=== PATIENT | female | born 1960 | race Two or more races ===

== ENCOUNTER 2023-05-22 13:00 | Outpatient (CLI) | payer OTHER | END 2023-05-22 13:02 | disposition home or self-care (01) | LOC: NUCLEAR 13:00 | PROVIDERS: ATTEND Obstetrics & Gynecology | DX: M81.0 Age-related osteoporosis without current pathological fracture (principal) ==

== ENCOUNTER → 2025-03-08 | Emergency (ER) | payer OTHER ==
[~2025-03-08] VITALS: Ht 162.6 cm; Wt 104.8 kg
[~2025-03-08] MED LIST: LOSARTAN-HCTZ1 EACH PO; NORFLEX100MG PO; SYNTHROID75 MCG PO
== END | disposition home or self-care (01) ==
LOC: ER 09:51
DX: M54.50 Low back pain, unspecified (principal); Z91.013 Allergy to seafood; Z88.6 Allergy status to analgesic agent

== ENCOUNTER 2025-05-30 08:09 | Outpatient (CLI) | payer OTHER | END 2025-05-30 08:10 | disposition home or self-care (01) | LOC: NUCLEAR 08:09 | PROVIDERS: ATTEND Internal Medicine Endocrinology, Diabetes & Metabolism | DX: M81.0 Age-related osteoporosis without current pathological fracture (principal) ==